=== PATIENT | male | born 1985 | race African-American/Black ===

== ENCOUNTER 2016-08-14 13:42 | Emergency (ER) | payer SELFPAY ==
[2016-08-14 14:02] VITALS: TEMP 98.2; BMI 34.7
[2016-08-14] MEDS ORDERED: ONDANSETRON 4 MG/2 ML VIAL IVPUSH ONE (14:40)
[2016-08-14] MEDS ORDERED: KETOROLAC TROMETHAMINE 30 MG/1 ML VIAL IVPUSH ONE (14:41)
--- NOTE | 2016-08-14 14:43 | PDOC ---
History of Present Illness - General Chief Complaint: Pain Stated Complaint: CHEST PAIN Time Seen by Provider: 08/14/16 14:13 History Source: Patient Exam Limitations: No Limitations - History of Present Illness Initial Comments: 08/14/16 14:44 This is a 30 yo M with PMH of HTN (not on meds),who presents with midsternal chest pain, epigastric pain and nausea since this morning before breakfast while he was resting. The chest pain is constant, nonradiating, sharp and feels like "muscle pain" according to patient. It is aggravated by deep inspiration, and reproduced by pressing on chest wall. Abd pain started at the same time as chest pain and is sharp, constant and nonradiating. Both symptoms were preceded by nausea and dry heaves. He Had similar chest pain a year ago that was self limited and similar abdominal pain 2w ago. He denies sob, palpitations, lightheadedness, LOL. He has had a chronic daily productive cough with brown sputum for a month. He denies f/c, vomiting, melena, hematochezia, diarrhea, constipation. He has family HX of [place] in old age. He is a smoker pack/d. He denies hemoptysis or weight loss. 08/14/16 14:45 08/14/16 15:18 08/14/16 16:04 Past History - Past Medical History Allergies/Adverse Reactions: Allergies Allergy/AdvReac Type Severity Reaction Status Date / Time No Known Allergies Allergy Verified 08/14/16 14:00 Home Medications: Ambulatory Orders NK [No Known Home Medication] 08/14/16 HTN: Yes Suicide Attempt (Hx): No - Immunization History Immunization Up to Date: Yes - Psycho/Social/Smoking Cessation Hx Anxiety: No Suicidal Ideation: No Smoking Status: Yes Smoking History: Current every day smoker Have you smoked in the past 12 months: Yes Number of Cigarettes Smoked Daily: 20 Information on smoking cessation initiated: No Hx Alcohol Use: No Drug/Substance Use Hx: No Substance Use Type: None Review of Systems - Review of Systems Able to Perform ROS?: Yes Is the patient limited Pashto proficient: No Constitutional: No: Chills, Fever, Night Sweats HEENTM: No: Ear Pain, Nose Congestion, Throat Pain Respiratory: Yes: Cough, Shortness of Breath (mild), Productive cough. No: Orthopnea, Wheezing, Hemoptysis Cardiac (ROS): Yes: Chest Pain. No: Edema, Irregular Heart Rate, Lightheadedness, Palpitations, Syncope, Chest Tightness ABD/GI: Yes: Blood Streaked Bowels, Nausea, Abdominal cramping. No: Abdominal Distended, Constipated, Diarrhea, Poor Appetite, Vomiting : No: Dysuria, Flank Pain Musculoskeletal: No: Back Pain, Muscle Pain Integumentary: No: Bruising, Lesions Neurological: No: Headache, Numbness, Paresthesia Psychiatric: No: Anxiety, Depression Endocrine: No: Excessive Sweating, Unexplained Weight Gain, Unexplained Weight Loss Hematologic/Lymphatic: No: Anemia, Blood Clots, Easy Bleeding, Easy Bruising All Other Systems: Reviewed and Negative *Physical Exam - Vital Signs Last Vital Signs Temp Pulse Resp BP Pulse Ox 98.2 F 71 20 159/102 100 08/14/16 13:58 08/14/16 13:58 08/14/16 13:58 08/14/16 13:58 08/14/16 13:58 - Physical Exam Comments: 08/14/16 16:24 GENERAL: [id number], MILD DISTRESS HEENT: NORMOCEPHALIC, ATRAUMATIC, PERRLA EOMI, NO SCLERAL ICTERUS Heart Score/ECG Review #1 ECG reviewed & interpreted by me at: 14:35 (NS 61, normal axis, no st abnormality ) ED Treatment Course - LABORATORY CBC & Chemistry Diagram: 08/14/16 14:51 08/14/16 14:51 - RADIOLOGY Radiology Studies Ordered: Category Date Time Status ABDOMEN-KUB FLAT PLATE [RAD] Stat Radiology 08/14/16 14:40 Ordered CXRPORT [CHEST X-RAY PORTABLE*] [RAD] Stat Radiology 08/14/16 14:39 Ordered Medical Decision Making - Medical Decision Making 08/14/16 17:05 Patient states he feels fine after zofran, analgesia and maalox. His lab work is unremarkable. He refuses abdominal xray and a chest x ray despite being explained the risks and verbalizing understanding. He also states that he does not want protonix for his stomach. *DC/Admit/Observation/Transfer Diagnosis at time of Disposition: GERD (gastroesophageal reflux disease), Musculoskeletal chest pain - Discharge Dispostion Disposition: HOME Condition at time of disposition: Good Admit: No - Patient Instructions Additional Instructions: We do not think your chest pain is due to your heart, it is likely muscle pain The abdominal pain is likely reflux or stomach ulcer. Please follow up with a gastrointerologist faisal Your blood pressure was elevated. Please follow up with a primary doctor to treat hypertension return to hospital if symptoms worsen. - Post Discharge Activity Work/School Note: Back to Work
[2016-08-14] MEDS ORDERED: amLODIPine BESYLATE 10 MG TABLET (FP) PO ONE (14:44)
[2016-08-14] MEDS ORDERED: KETOROLAC TROMETHAMINE 30 MG/1 ML VIAL ONE (15:00)
[2016-08-14] MEDS ORDERED: amLODIPine BESYLATE 5 MG TABLET (FP) ONE (15:00)
[2016-08-14] MEDS ORDERED: ONDANSETRON 4 MG/2 ML VIAL ONE (15:00)
[2016-08-14] MEDS ORDERED: MAG HYDROX/AL HYDROX/SIMETH 30 ML UNIT-DOSE CUP PO ONE (15:02)
[2016-08-14 15:05] LABS: BASOPHIL 0.5 % (0-2.0); EOSINOPHIL 2.5 % (0-4.5); MCH 28.6 pg (25.7-33.7); MCHC 33.1 g/dl (32.0-35.9); MEAN CELL VOLUME 86.4 fl (80-96); MEAN PLT VOLUME 8.6 fl (7.5-11.1); NEUTROPHILS 63.3 % (42.8-82.8); PLATELET COUNT 245 K/MM3 (134-434); RDW 12.4 % (11.9-15.9); WHITE BLOOD COUNT 5.6 K/mm3 (4.0-10.0)
[2016-08-14] MEDS ORDERED: MAG HYDROX/AL HYDROX/SIMETH 30 ML UNIT-DOSE CUP ONE (15:20)
[2016-08-14 15:29] LABS: ALK PHOS 50 U/L (45-117); ANION GAP 6 (8-16); BILIRUBIN,TOTAL 0.5 mg/dL (0.2-1.0); CALCIUM 9.1 mg/dL (8.5-10.1); CO2 28 mmol/L (21-32); COCKROFT - GAULT 188.8; GLUCOSE,RANDOM 92 mg/dL (74-106); SGPT/ALT 18 U/L (12-78); TOT PROT 7.5 g/dl (6.4-8.2)
[2016-08-14 15:31] LABS: TROPONIN I < 0.02 ng/ml (0.00-0.05)
[2016-08-14 15:32] LABS: SGOT/AST 28 U/L (15-37)
--- NOTE | 2016-08-14 16:13 | PDOC ---
Attending Attestation - Resident Resident Name: Beth Tam - ED Attending Attestation I have performed the following: I have examined & evaluated the patient, The case was reviewed & discussed with the resident, I agree w/resident's findings & plan, Exceptions are as noted - HPI HPI: 08/14/16 16:10 30y/o M h/o HTN noncompliant with his meds p/w atypical chest and upper abdominal discomfort since this morning. no sob/nausea, sxs are nonexertional but they are positional, no orthopnea/leg swelling. no cough/f/c. - Physicial Exam PE: 08/14/16 16:11 elevated bp comfortable otherwise nonfocal exam - Medical Decision Making 08/14/16 16:11 Patient seen and evaluated with the resident. I agree with the overall evaluation, assessment, and management with the following summary of visit: 30-year-old male. Untreated hypertension presents with atypical chest pain and upper abdominal complaints. Atypical for ACS, EKG without acute ischemia. Question GI process such as gastritis, rule out biliary or pancreatic process. Question pericarditis or costochondritis, trial of Toradol. Labs, EKG Chest x-ray Maalox, Toradol Norvasc for blood pressure Reassess, can discharge if above is within normal limits and feels well
[2016-08-14 17:26] VITALS: BP 143/90; PULSE 89
--- NOTE | 2016-08-19 15:42 | EKG ---
Test Reason : Blood Pressure : / mmHG Vent. Rate : 081 BPM Atrial Rate : 081 BPM P-R Int : 136 ms QRS Dur : 088 ms QT Int : 358 ms P-R-T Axes : 019 013 026 degrees QTc Int : 415 ms NORMAL SINUS RHYTHM NORMAL ECG WHEN COMPARED WITH ECG OF 15-OCT-2015 13:45, NO SIGNIFICANT CHANGE WAS FOUND BASELINE ARTIFACT Confirmed by KURTIS BARGER MD ([id number]) on 08/19/2016 3:41:30 PM Referred By: Confirmed By:KURTIS BARGER MD
== END 2016-08-14 17:26 | disposition home or self-care (01) ==
LOC: JER 13:42
PROC: 3E0333Z Introduction of Anti-inflammatory into Peripheral Vein, Percutaneous Approach (ICD-10-PCS; principal; 2016-08-14)
PROC: 3E033GC Introduction of Other Therapeutic Substance into Peripheral Vein, Percutaneous Approach (ICD-10-PCS; 2016-08-14)
DX: K21.9 Gastro-esophageal reflux disease without esophagitis (principal); R07.89 Other chest pain
CPT/HCPCS: 36415; 80053; 82550; 82553; 83605; 83690; 84484; 85025; 93005; 93010; 99283-25